=== PATIENT | male | born 1970 | race Two or more races ===

== ENCOUNTER 2021-11-22 17:11 | Inpatient (IN) | payer MEDICARE, OTHER ==
[~2021-11-22] VITALS: Ht 195.6 cm; Wt 170.1 kg
[2021-11-22] MEDS ORDERED: ONDANSETRON HCL/PF 4 MG/2 ML VIAL ONE (17:57)
[2021-11-22] MEDS ORDERED: MORPHINE SULFATE INJ 4 MG/ML DISP.SYRIN ONE (17:57)
[2021-11-22] MEDS ORDERED: MORPHINE SULFATE INJ 2 MG/ML DISP.SYRIN IV ONE (18:00)
[2021-11-22] MEDS ORDERED: ONDANSETRON HCL/PF 4 MG/2 ML VIAL IV ONE (18:00)
[2021-11-22] MEDS ORDERED: NITROGLYCERIN 0.4 MG/TAB BOTTLE SL ONE (18:00)
[2021-11-22 18:03] LABS: BASOPHILS # (AUTO) 0.1 K/uL (0.0-0.2); BASOPHILS % (AUTO) 0.8 % (0.0-2.0); EOSINOPHILS % (AUTO) 1.4 % (0.0-6.0); HEMATOCRIT 45 % (39-51); HEMOGLOBIN 15.1 g/dL (13.5-17.5); LYMPHOCYTES # (AUTO) 1.2 K/uL (0.8-4.8); LYMPHOCYTES % (AUTO) 12.2 % (20.0-44.0); MEAN CORPUSCULAR HGB CONC 34 g/dl (31.0-36.0); MEAN CORPUSCULAR VOLUME 93 fL (80-96); MONOCYTES # (AUTO) 0.6 K/uL (0.1-1.30); MONOCYTES % (AUTO) 6.4 % (2.0-12.0); NEUTROPHILS % (AUTO) 79.2 % (43.0-81.0); PLATELET COUNT (AUTO) 236 K/uL (150-450); RED BLOOD CELL COUNT(AUTO) 4.82 MIL/uL (4.5-6.0); WHITE BLOOD COUNT (AUTO) 10.1 K/uL (4.3-11.0)
[2021-11-22 18:30] LABS: POTASSIUM 3.9 mmol/L (3.5-5.1); SODIUM SERUM 136 mmol/L (136-145)
[2021-11-22 18:31] LABS: CALCIUM, SERUM 8.6 mg/dL (8.5-10.1); CARBON DIOXIDE 22 mmol/L (21-32); CHLORIDE 101 mmol/L (98-107); CREATININE 1.1 mg/dL (0.6-1.3); GLUCOSE 96 mg/dL (74-106); UREA NITROGEN, BLOOD 11 mg/dL (7-18)
[2021-11-22] MEDS ORDERED: IOHEXOL-350 100 ML VIAL IV ONE (18:58)
[2021-11-22] MEDS ORDERED: IV NS 0.9% 250 ML IV ONE (18:58)
[2021-11-22] MEDS ORDERED: CT SWABBABLE VALVE TRANS SET 1 EA INFUS.SET MC ONE (18:58)
[2021-11-22] MEDS ORDERED: LORAZEPAM 1 MG TABLET ONE (21:10)
[2021-11-22] MEDS ORDERED: LORAZEPAM 1 MG TABLET PO ONE (21:30)
[2021-11-22] MEDS ORDERED: NITROGLYCERIN 0.4 MG/TAB BOTTLE SL PRN (22:00)
[2021-11-22] MEDS ORDERED: ONDANSETRON HCL/PF 4 MG/2 ML VIAL IVP PRN (22:00)
[2021-11-22] MEDS ORDERED: MAGNESIUM HYDROXIDE 30 ML UDC PO PRN (22:00)
[2021-11-22] MEDS ORDERED: Z GUARD REMEDY 4 OZ OINT TP PRN (22:00)
[2021-11-22] MEDS ORDERED: MORPHINE SULFATE INJ 2 MG/ML DISP.SYRIN IV PRN (22:00)
[2021-11-22] MEDS ORDERED: MAG HYDROX/AL HYDROX/SIMETH 30 ML UDC PO PRN (22:00)
[2021-11-22] MEDS ORDERED: ACETAMINOPHEN 325 MG TABLET PO PRN (22:00)
[2021-11-22] MEDS ORDERED: OLANZAPINE 10 MG VIAL IM ONE (23:26)
[2021-11-22] MEDS ORDERED: OLANZAPINE 5 MG TABLET PO ONE (23:30)
[2021-11-22] MEDS ORDERED: METOPROLOL TARTRATE 25 MG TABLET PO SCH (23:46)
[2021-11-23] MEDS ORDERED: OLANZAPINE 10 MG VIAL IM ONE
[2021-11-23] MEDS ORDERED: TEMA15CA PO (08:14)
[2021-11-23] MEDS ORDERED: METO25TA20 PO (08:14)
[2021-11-23] MEDS ORDERED: HYDR-3980 PO (08:14)
[2021-11-23 09:14] LABS: BASOPHILS # (AUTO) 0.1 K/uL (0.0-0.2); BASOPHILS % (AUTO) 0.8 % (0.0-2.0); HEMATOCRIT 43 % (39-51); HEMOGLOBIN 14.5 g/dL (13.5-17.5); LYMPHOCYTES # (AUTO) 1.1 K/uL (0.8-4.8); LYMPHOCYTES % (AUTO) 12.8 % (20.0-44.0); MEAN CORPUSCULAR HGB CONC 34 g/dl (31.0-36.0); MEAN CORPUSCULAR VOLUME 93 fL (80-96); MONOCYTES # (AUTO) 0.6 K/uL (0.1-1.30); MONOCYTES % (AUTO) 6.8 % (2.0-12.0); NEUTROPHILS # (AUTO) 6.4 K/uL (1.8-8.9); NEUTROPHILS % (AUTO) 77.6 % (43.0-81.0); PLATELET COUNT (AUTO) 219 K/uL (150-450); WHITE BLOOD COUNT (AUTO) 8.3 K/uL (4.3-11.0)
[2021-11-23 09:54] LABS: CREATININE 0.9 mg/dL (0.6-1.3); MAGNESIUM 2.3 mg/dL (1.8-2.4); PHOSPHORUS 4.4 mg/dL (2.5-4.9); POTASSIUM 3.6 mmol/L (3.5-5.1)
[2021-11-23] MEDS ORDERED: TEMAZEPAM 15 MG CAPSULE PO PRN (13:00)
[2021-11-23] MEDS ORDERED: METOPROLOL TARTRATE 25 MG TABLET PO SCH (17:00)
[2021-11-23] MEDS: LOSARTAN POTASSIUM 25 MG TABLET PO SCH (17:01)
[2021-11-23 20:00] VITALS: BP 121/66
[2021-11-23] MEDS: METOPROLOL TARTRATE 25 MG TABLET PO SCH (21:14)
[2021-11-24] VITALS: BP 129/70
[2021-11-24 04:00] VITALS: BP 94/57
[2021-11-24 08:00] VITALS: BP 126/64
[2021-11-24] MEDS: LOSARTAN POTASSIUM 25 MG TABLET PO SCH (08:33)
[2021-11-24] MEDS: METOPROLOL TARTRATE 25 MG TABLET PO SCH ×2 (08:33→21:00)
[2021-11-24] MEDS ORDERED: NITROGLYCERIN 0.4 MG/TAB BOTTLE ONE (09:02)
[2021-11-24] MEDS ORDERED: METOPROLOL TARTRATE INJ 5 MG/5 ML AMPUL ONE (09:02)
[2021-11-24] MEDS ORDERED: IOHEXOL-350 100 ML VIAL IV ONE ×2 (09:02→09:54)
[2021-11-24] MEDS ORDERED: CT SWABBABLE VALVE TRANS SET 1 EA INFUS.SET MC ONE (09:03)
[2021-11-24] MEDS ORDERED: IV NS 0.9% 250 ML IV ONE (09:03)
[2021-11-24] MEDS ORDERED: NITROGLYCERIN 0.4 MG/TAB BOTTLE SL ONE (09:30)
[2021-11-24] MEDS ORDERED: METOPROLOL TARTRATE INJ 5 MG/5 ML AMPUL IVP PRN (09:30)
[2021-11-24 12:00] VITALS: BP 126/64
[2021-11-24 16:00] VITALS: BP 120/70
[2021-11-24 20:00] VITALS: BP 116/62
[2021-11-24] MEDS: HYDROCODONE/APAP 10/325MG TABLET PO PRN (21:38)
[2021-11-24] MEDS: ZOLPIDEM TARTRATE 5 MG TABLET PO PRN (23:55)
[2021-11-25] VITALS: BP 113/55
[2021-11-25 04:00] VITALS: BP 93/57
[2021-11-25 08:00] VITALS: BP 112/69
[2021-11-25] MEDS: LOSARTAN POTASSIUM 25 MG TABLET PO SCH (09:22)
[2021-11-25] MEDS: METOPROLOL TARTRATE 25 MG TABLET PO SCH (09:22)
[2021-11-25 12:00] VITALS: BP 118/73
[2021-11-25] MEDS: ZOLPIDEM TARTRATE 5 MG TABLET PO PRN (13:19)
[2021-11-25] MEDS: HYDROCODONE/APAP 10/325MG TABLET PO PRN (13:19)
== END 2021-11-25 15:36 | DRG 206 ==
LOC: ER 17:17 → TELE1 23:35 → MEDSG1 11-25 08:46
PROVIDERS: ADMIT Internal Medicine; ATTEND Internal Medicine
DX: M94.0 Chondrocostal junction syndrome [Tietze] (principal); I10 Essential (primary) hypertension; F41.9 Anxiety disorder, unspecified; G89.29 Other chronic pain; Z20.822 Contact with and (suspected) exposure to COVID-19; Z98.890 Other specified postprocedural states; G31.84 Mild cognitive impairment of uncertain or unknown etiology
CPT/HCPCS: 36415; 71045-TC; 75574; 80048-TC; 83735-TC; 84100-TC; 84484-TC; 85025-TC; 85378-TC; 87081-TC; 93307-TC; C9803; G0378; J2270; J2405; J3490; J7050; Q9967; U0003

== ENCOUNTER 2021-12-13 18:00 | Inpatient (IN) | payer MEDICARE, OTHER ==
[~2021-12-13] VITALS: Ht 198.1 cm; Wt 181.4 kg
[~2021-12-13 18:00] MED LIST: HYDR-3980 PO; METO25TA20 PO; TEMA15CA PO
--- NOTE | 2021-12-13 18:15 | NUR ---
To ER bed 9, BIBA RA60 "[place] SOB today have Back and chest pain". Patient has history of multiple neck surgery from a fall, most recent one was last year, takes routine pain medicine consist of morphine and norco, connected to monitor
[2021-12-13] MEDS ORDERED: MORPHINE SULFATE INJ 4 MG/ML DISP.SYRIN ONE (18:46)
[2021-12-13] MEDS ORDERED: ONDANSETRON HCL/PF 4 MG/2 ML VIAL ONE (18:46)
[2021-12-13 18:58] LABS: CALCIUM, SERUM 8.5 mg/dL (8.5-10.1); CREATININE 1.1 mg/dL (0.6-1.3); POTASSIUM 3.6 mmol/L (3.5-5.1)
[2021-12-13] MEDS ORDERED: ONDANSETRON HCL/PF 4 MG/2 ML VIAL IVP ONE (19:00)
[2021-12-13] MEDS ORDERED: MORPHINE SULFATE INJ 2 MG/ML DISP.SYRIN IV ONE (19:00)
--- NOTE | 2021-12-13 19:40 | NUR ---
PT RECIEVED IN BED RESTING. ALERT, AWAKE AND ORIENTED. NOT IN DISTRESS.
[2021-12-13 19:57] LABS: BASOPHILS # (AUTO) 0.1 K/uL (0.0-0.2); BASOPHILS % (AUTO) 1.1 % (0.0-2.0); EOSINOPHILS % (AUTO) 0.8 % (0.0-6.0); HEMATOCRIT 43 % (39-51); HEMOGLOBIN 14.5 g/dL (13.5-17.5); LYMPHOCYTES # (AUTO) 1.5 K/uL (0.8-4.8); LYMPHOCYTES % (AUTO) 13.6 % (20.0-44.0); MEAN CORPUSCULAR HGB CONC 34 g/dl (31.0-36.0); MEAN CORPUSCULAR VOLUME 93 fL (80-96); MONOCYTES # (AUTO) 0.8 K/uL (0.1-1.30); MONOCYTES % (AUTO) 7.1 % (2.0-12.0); NEUTROPHILS # (AUTO) 8.3 K/uL (1.8-8.9); NEUTROPHILS % (AUTO) 77.4 % (43.0-81.0); PLATELET COUNT (AUTO) 218 K/uL (150-450); RED BLOOD CELL COUNT(AUTO) 4.61 MIL/uL (4.5-6.0); WHITE BLOOD COUNT (AUTO) 10.7 K/uL (4.3-11.0)
--- NOTE | 2021-12-13 21:40 | NUR ---
PHLEB INFORMED ME THAT THE PATIENT HAVE A BLOOD DRAW FOR TROPONIN. PT REFUSED AND TOLD PHLEB THAT SHE CAN GET THE BLOOD FROM HIS WRIST. PT WAS NOTED WITH A CUT ON HIS RIGHT WRIST ABOUT 4CM WITH MODERATED BLEEDING. WOUND CARE PROVIDED. PROVIDER WAS NOTIFIED. PT'S BELINGINGS WAS SERCHED AND FOUND A KNIFE. PER PT, HE DOES NOT WANT TO LIVE ANY MORE.
[2021-12-13] MEDS ORDERED: LIDOCAINE 1%-EPI 1:100,000 20 ML VIAL ONE (21:51)
--- NOTE | 2021-12-13 22:10 | NUR ---
PROVIDER AT BEDSIDE FOR SUTURING OF WOUND
--- NOTE | 2021-12-13 22:10 | NUR ---
PROVIDER TALKING TO DR. RAZO OVER THE PHONE.
[2021-12-13] MEDS ORDERED: HYDROCODONE/APAP 5/325MG TABLET PO PRN (23:00)
[2021-12-13] MEDS ORDERED: IV NS 0.9% 1,000 ML IV PRN (23:00)
[2021-12-13] MEDS ORDERED: ONDANSETRON HCL/PF 4 MG/2 ML VIAL IVP PRN (23:00)
[2021-12-13] MEDS ORDERED: MAG HYDROX/AL HYDROX/SIMETH 30 ML UDC PO PRN (23:00)
[2021-12-13] MEDS ORDERED: ZOLPIDEM TARTRATE 5 MG TABLET PO PRN (23:00)
[2021-12-13] MEDS ORDERED: ACETAMINOPHEN 325 MG TABLET PO PRN (23:00)
[2021-12-13] MEDS ORDERED: MAGNESIUM HYDROXIDE 30 ML UDC PO PRN (23:00)
[2021-12-13] MEDS ORDERED: Z GUARD REMEDY 4 OZ OINT TP PRN (23:00)
[2021-12-14] MEDS ORDERED: LORAZEPAM 1 MG TABLET ONE (00:57)
[2021-12-14] MEDS ORDERED: LORAZEPAM INJ 2 MG/ML VIAL ONE (01:00)
--- NOTE | 2021-12-14 01:05 | NUR ---
dr. marjorie miner was at the bedside talking to pt. verbal order received to given ativan 2mg iv x 1 now and ativan 1mg iv qh4 prn. noted and carried out
[2021-12-14] MEDS ORDERED: *INSULIN REGULAR(HUMULIN R)HUM 100 UNIT/ML VIAL SQ PRN (01:30)
[2021-12-14] MEDS ORDERED: DEXTROSE 50%-WATER 50 ML DISP.SYRIN IV PRN (01:30)
[2021-12-14] MEDS ORDERED: LORAZEPAM INJ 2 MG/ML VIAL IV ONE (01:30)
[2021-12-14] MEDS ORDERED: LORAZEPAM INJ 2 MG/ML VIAL IV PRN (01:30)
[2021-12-14] MEDS ORDERED: INSULIN REGULAR, HUMAN 100 UNIT/ML 3 ML VIAL SQ PRN (01:30)
[2021-12-14] MEDS ORDERED: TEMAZEPAM 15 MG CAPSULE PO PRN (02:30)
[2021-12-14] MEDS ORDERED: HYDROCODONE/APAP 10/325MG TABLET PO PRN (02:30)
--- NOTE | 2021-12-14 03:40 | NUR ---
PT IN BED SLEEPING. NO DISTRESS NOTED. SITTER IS AT BEDSIDE.
[2021-12-14 04:21] LABS: BASOPHILS % (AUTO) 0.2 % (0.0-2.0); EOSINOPHILS % (AUTO) 2.3 % (0.0-6.0); HEMATOCRIT 41 % (39-51); HEMOGLOBIN 14.1 g/dL (13.5-17.5); LYMPHOCYTES # (AUTO) 1.4 K/uL (0.8-4.8); LYMPHOCYTES % (AUTO) 17.5 % (20.0-44.0); MEAN CORPUSCULAR HGB CONC 34 g/dl (31.0-36.0); MEAN CORPUSCULAR VOLUME 92 fL (80-96); MONOCYTES # (AUTO) 0.7 K/uL (0.1-1.30); MONOCYTES % (AUTO) 9.2 % (2.0-12.0); NEUTROPHILS # (AUTO) 5.7 K/uL (1.8-8.9); NEUTROPHILS % (AUTO) 70.8 % (43.0-81.0); PLATELET COUNT (AUTO) 204 K/uL (150-450); RED BLOOD CELL COUNT(AUTO) 4.45 MIL/uL (4.5-6.0); WHITE BLOOD COUNT (AUTO) 8.1 K/uL (4.3-11.0)
[2021-12-14 04:37] LABS: CREATININE 0.8 mg/dL (0.6-1.3); MAGNESIUM 2.1 mg/dL (1.8-2.4); PHOSPHORUS 3.2 mg/dL (2.5-4.9); POTASSIUM 3.6 mmol/L (3.5-5.1)
[2021-12-14 04:46] LABS: THYROID STIMULATING HORMONE 0.9 uIU/mL (0.358-3.74)
--- NOTE | 2021-12-14 06:00 | NUR ---
PT IN BED SLEEPING, BREATHING EVEN AN DUNLABORED. NO DISTRESS NOTED. 1:1 SITTER AT BEDSIDE
[2021-12-14] MEDS ORDERED: PANTOPRAZOLE 40 MG TABLET.DR PO SCH (07:30)
--- NOTE | 2021-12-14 07:36 | NUR ---
PT ENDORSED TO MIGUE NATHAN FOR SELENE
--- NOTE | 2021-12-14 07:41 | NUR ---
PT ENDORSED TO SYLVESTER RN WELL
[2021-12-14] MEDS: BLOOD SUGAR DIAGNOSTIC 1 EACH STRIP VI SCH ×2 (07:56→12:18)
[2021-12-14] MEDS ORDERED: PANTOPRAZOLE 40 MG TABLET.DR PO ONE (08:00)
--- NOTE | 2021-12-14 08:22 | NUR ---
CALLED ART FOR EVAL.
[2021-12-14] MEDS ORDERED: ASPIRIN EC 81 MG TABLET.DR PO SCH (09:00)
[2021-12-14] MEDS ORDERED: METOPROLOL TARTRATE 25 MG TABLET PO SCH (09:00)
[2021-12-14] MEDS ORDERED: ENOXAPARIN SODIUM 40 MG/0.4 ML DISP.SYRIN SQ SCH (09:00)
[2021-12-14] MEDS ORDERED: ENOXAPARIN SODIUM 40 MG/0.4 ML DISP.SYRIN SQ ONE (09:35)
[2021-12-14] MEDS ORDERED: HYDROCODONE/APAP 5/325MG TABLET ONE (09:35)
[2021-12-14] MEDS ORDERED: ASPIRIN EC 81 MG TABLET.DR PO ONE (09:36)
--- NOTE | 2021-12-14 10:12 | NUR ---
MEDICALLY CLEARED PER DR DOUGLASS,NEEDS PSYCH EVAL
--- NOTE | 2021-12-14 10:52 | NUR ---
BED GIVEN 214 A
[2021-12-14 11:21] VITALS: BP 116/64
--- NOTE | 2021-12-14 11:23 | NUR ---
IV removed. Catheter intact and site benign. Pressure and 4x4 applied to site. No bleeding noted.
--- NOTE | 2021-12-14 12:01 | NUR ---
PT SITTING IN BED EATING
--- NOTE | 2021-12-14 13:20 | NUR ---
report given to rn
--- NOTE | 2021-12-14 13:22 | NUR ---
PT TRANSFERRED TO UNIT FOLLOWING ACLS PROTOCOL
== END 2021-12-14 14:20 | DRG 74 ==
LOC: ER 18:07 → TRANSITION 23:04
PROVIDERS: ADMIT Student in an Organized Health Care Education/Training Program; ATTEND Internal Medicine
DX: G90.8 Other disorders of autonomic nervous system (principal); E87.1 Hypo-osmolality and hyponatremia; M94.0 Chondrocostal junction syndrome [Tietze]; E11.9 Type 2 diabetes mellitus without complications; G89.29 Other chronic pain; S61.511A Laceration without foreign body of right wrist, initial encounter; X78.1XXA Intentional self-harm by knife, initial encounter; Y92.89 Other specified places as the place of occurrence of the external cause; I50.9 Heart failure, unspecified; I11.0 Hypertensive heart disease with heart failure; Z79.899 Other long term (current) drug therapy; G31.84 Mild cognitive impairment of uncertain or unknown etiology; Z98.890 Other specified postprocedural states; F41.9 Anxiety disorder, unspecified
CPT/HCPCS: 36415; 70450-TC; 71045-TC; 73564-TC; 80048-TC; 82962-TC; 83735-TC; 84100-TC; 84443-TC; 84484-TC; 85025-TC; 87081-TC; C9803; G0378; J1650; J1815; J2060; J2270; J2405; J3490; J7030

== ENCOUNTER 2021-12-14 14:20 | Inpatient (IN) | payer MEDICARE, OTHER ==
[~2021-12-14] VITALS: Ht 198.1 cm; Wt 174.2 kg
--- NOTE | 2021-12-14 10:39 | NUR ---
RANDELL Note: SW asked pt how he got the knife, he stated that he [place] it from the [place] and came to the ER due to being depressed over losing his job and gf.
--- NOTE | 2021-12-14 13:55 | NUR ---
Admitting Source: Pt. currently resides at [address] [address]. Pt. stated he wants to be placed at a different assisted living facility. SW will find different placement for pt.
--- NOTE | 2021-12-14 14:38 | NUR ---
ADMISSION NOTES: ADMITTED THIS 51Y/O MALE PATIENT ADMIT FROM [facility] ER/ HOME, ADMITTED TO GPS ON 5150 HOLD, PER HOLD DANGER TO SELF, WHILE IN THE ED THE PT. CUT HIS WRIST WITH A KNIFE A SUICIDE ATTEMPT AND REMAINS SUICIDAL, PT. DESPONDENT OVER LOSING HIS JOB AND GIRLFRIEND. HEARING VOICES TELLING HIM THEY ARE KILLING HIM , UPON FACE TO FACE ASSESSMENT PATIENT IS A&O X 4 , DEPRESSED,SAD ,BLUNTED ,WITH FLAT AFFECT, CALM COOPERTIVE AT THIS TIME, PT. IS POOR HISTORIAN, POOR INSIGHT ,POOR JUDGEMENT , BOTH MD AWARE AND NOTIFIED OF THE ADMISSION, BELONGINGS CONTRABAND WERE DONE ,PT. RIGHTS DISCUSS BY WATCH COMMANDER , PROVIDE THE PT. WITH HANDBOOK, AND MEDICATIONS GUIDE, ENVIRONMENTAL SAFETY CHECK DONE, ENCOURAGED PT. VERBALIZED ANY FEELING CONCERN TO STAFF, ORIENT TO UNIT POLICY, NO ACUTE DISTRESS NOTED,VITAL SIGNS WNL ,DENIES ANY PAIN AT THIS TIME,WILL CONTINUE TO MONITOR FOR Q15 SAFETY AND BEHAVIOR.
[2021-12-14] MEDS ORDERED: HYDROCODONE/APAP 10/325MG TABLET PO PRN (15:00)
[2021-12-14] MEDS ORDERED: BLOOD SUGAR DIAGNOSTIC 1 EACH STRIP IN ONE (15:30)
[2021-12-14] MEDS ORDERED: ACETAMINOPHEN 325 MG TABLET PO PRN (15:30)
[2021-12-14] MEDS ORDERED: LORAZEPAM 0.5 MG TABLET PO PRN (15:30)
[2021-12-14] MEDS ORDERED: TEMAZEPAM 7.5 MG CAPSULE PO PRN (15:30)
[2021-12-14] MEDS ORDERED: MAGNESIUM HYDROXIDE 30 ML UDC PO PRN (15:30)
[2021-12-14] MEDS ORDERED: MAG HYDROX/AL HYDROX/SIMETH 30 ML UDC PO PRN (15:30)
--- NOTE | 2021-12-14 15:35 | NUR ---
Social Work Note/Substance Abuse Intervention: Patient was provided with a brief substance abuse intervention and referred to [facility] ([phone]), [facility] ([phone]), and [facility] ([phone]) for alcohol abuse.
--- NOTE | 2021-12-14 15:35 | NUR ---
SW Note: Pt does not have any supportive contact at this time.
[2021-12-14 15:43] VITALS: BP 132/76
--- NOTE | 2021-12-14 15:46 | NUR ---
RANDELL Initial Discharge Plan: Pt. currently resides at [address] [facility] [address] [facility] [address] [address]. Pt. stated he wants to be placed at a different assisted living facility. RANDELL will work with the pt. and MD to coordinate appropriate discharge.
[2021-12-14 16:00] VITALS: BP 116/69
[2021-12-14 16:01] VITALS: BP 116/69
--- NOTE | 2021-12-14 16:17 | NUR ---
RANDELL Note: RANDELL received a call from Petrona ([phone]) from [facility] and she stated that they cannot accept pt back because pt has been threatening the residence.
--- NOTE | 2021-12-14 16:26 | NUR ---
RN NOTES: PT. REFUSED TO SIGNS ADMISSION CONSENT PAPERS DUE TO MENTAL CONDITION /ANXIETY , PT. REFUSED FULL BODY SKIN ASSESSMENT AND ALLOWED ONLY UPPER LOWER EXTREMITIES SKIN ASSESSMENT, PT. REFUSED INTIALLY BLOOD SUGAR CHECK ,ENCOURAGED X 3 , RISKS AND BENFITS EXPLINED, PT. STRONGLY REFUSED ,WILL CONTINUE TO MONITOR FOR Q15 SAFETY AND BEHAVIOR.
[2021-12-14] MEDS: METOPROLOL TARTRATE 25 MG TABLET PO SCH (17:45)
[2021-12-14 20:00] VITALS: BP 123/75
--- NOTE | 2021-12-15 07:01 | NUR ---
RN GPS NOTE: DR. ISAACS STATED HE WILL SEE THE PATIENT LATER TONIGHT. PATIENT ALSO REFUSED BLOOD DRAW THIS MORNING, BUT SAID HE "WILL DO IT LATER". WILL CONTINUE TO MONITOR Q15 MINUTES FOR SAFETY.
[2021-12-15 08:00] VITALS: BP 117/76
--- NOTE | 2021-12-15 08:17 | NUR ---
PER LABORATORY STAFF MYLES Caballero PATIENT REFUSED BLOOD DRAW.
[2021-12-15] MEDS: METOPROLOL TARTRATE 25 MG TABLET PO SCH (08:43)
--- NOTE | 2021-12-15 08:55 | NUR ---
WOUND CARE CONSULT: PT REFUSED FULL SKIN ASSESSMENT. RT WRIST SUTURES NOTED, PRESENT ON ADMISSION. RECOMMENDATIONS MADE FOR SKIN PROTECTION AND WOUND CARE. DISCUSSED WITH NURSING STAFF. MD IN AGREEMENT WITH PLAN OF CARE. PT IS INDEPENDENT WITH BED MOBILITY.
--- NOTE | 2021-12-15 10:27 | NUR ---
ATIVAN 1MG GIVEN FOR ANXIETY. WILL CONTINUE TO MONITOR.
--- NOTE | 2021-12-15 11:45 | NUR ---
NORCO 10-325 GIVEN FOR PAIN OF 7. WILL CONTINUE TO MONITOR.
--- NOTE | 2021-12-15 11:56 | NUR ---
SW Note: Pt expressed to this contract technical writer that he does not want anyone to contact him. He stated he does not want this contract technical writer to share any information to the Independent Living he was at. Pt wants another placement.
[2021-12-15 16:00] VITALS: BP 134/79
[2021-12-15 16:14] LABS: ALBUMIN 3.3 g/dL (3.4-5.0); BILIRUBIN,TOTAL 0.4 mg/dL (0.2-1.0); CALCIUM, SERUM 8.6 mg/dL (8.5-10.1); CREATININE 0.9 mg/dL (0.6-1.3); POTASSIUM 3.8 mmol/L (3.5-5.1); TOTAL PROTEIN, SERUM 7.1 g/dL (6.4-8.2)
[2021-12-15 16:41] LABS: CHOLESTEROL 162 mg/dL (<200); HDL CHOLESTEROL 53 mg/dL (40-60); LDL 93 mg/dL (0-99); TRIGLYCERIDES 122 mg/dL (30-150)
--- NOTE | 2021-12-15 17:39 | NUR ---
PT ACCIDENTALLY DISCHARGED BY OTHER THAN [facility] GPS PERSONNEL. NURSING ELECTRICIAN DECK INFORMED THAT PT'S MEDS ARE NO LONGER AVAILABLE IN [facility]. NURSING ELECTRICIAN DECK STATED THAT PHARMACY WILL INPUT MEDS.
[2021-12-15] MEDS ORDERED: MAGNESIUM HYDROXIDE 30 ML UDC PO PRN (18:00)
[2021-12-15] MEDS ORDERED: BLOOD SUGAR DIAGNOSTIC 1 EACH STRIP IN ONE (18:00)
[2021-12-15] MEDS ORDERED: HYDROCODONE/APAP 10/325MG TABLET PO PRN (18:00)
[2021-12-15] MEDS ORDERED: MAG HYDROX/AL HYDROX/SIMETH 30 ML UDC PO PRN (18:00)
[2021-12-15] MEDS ORDERED: ACETAMINOPHEN 325 MG TABLET PO PRN (18:00)
[2021-12-15] MEDS ORDERED: TEMAZEPAM 7.5 MG CAPSULE PO PRN (18:00)
[2021-12-15] MEDS: LORAZEPAM 0.5 MG TABLET PO PRN (19:34)
--- NOTE | 2021-12-15 19:36 | NUR ---
RN NOTES: ANXIETY PT. C/O ANXIOUS , PARANOID ,PRN ATIVAN 1 MG PO GIVEN PER PT. REQUEST, WILL CONTINUE TO MONITOR.
[2021-12-15 20:00] VITALS: BP 121/74
[2021-12-15] MEDS ORDERED: TRAZODONE 50 MG TABLET PO PRN (22:30)
[2021-12-15] MEDS: BENZTROPINE MESYLATE (1 MG) 1 MG TABLET PO SCH (22:50)
[2021-12-15] MEDS: LITHIUM CARBONATE (300 MG CAP) 300 MG CAPSULE PO SCH (22:50)
[2021-12-15] MEDS: HALOPERIDOL 5 MG TABLET PO SCH (22:50)
[2021-12-16] MEDS: HALOPERIDOL 5 MG TABLET PO SCH ×3 (08:33→17:10)
[2021-12-16] MEDS: METOPROLOL TARTRATE 25 MG TABLET PO SCH ×2 (08:33→17:00)
[2021-12-16] MEDS: BENZTROPINE MESYLATE (1 MG) 1 MG TABLET PO SCH ×3 (08:34→17:10)
[2021-12-16] MEDS: LITHIUM CARBONATE (300 MG CAP) 300 MG CAPSULE PO SCH ×3 (08:34→17:10)
[2021-12-16 08:46] VITALS: BP 123/79
--- NOTE | 2021-12-16 13:36 | NUR ---
Skin Grader: RANDELL received a call from Marcella ([phone]) who helps pt and in a AL Program. RANDELL notified that Marcella medical case worker contacted, he stated not to share any information nor wants to talk to her. RANDELL informed this to Marcella.
[2021-12-16] MEDS: LORAZEPAM 0.5 MG TABLET PO PRN ×2 (15:24→19:43)
--- NOTE | 2021-12-16 15:30 | NUR ---
ATIVAN 1MG GIVEN FOR ANXIETY. WILL CONTINUE TO MONITOR.
[2021-12-16 16:14] VITALS: BP 104/68
[2021-12-16 19:46] VITALS: BP 135/72
[2021-12-16] MEDS: ZOLPIDEM TARTRATE 10 MG TABLET PO PRN (23:02)
[2021-12-17] MEDS: LORAZEPAM 0.5 MG TABLET PO PRN (06:47)
[2021-12-17] MEDS: BENZTROPINE MESYLATE (1 MG) 1 MG TABLET PO SCH ×3 (08:53→17:17)
[2021-12-17] MEDS: LITHIUM CARBONATE (300 MG CAP) 300 MG CAPSULE PO SCH ×3 (08:53→17:17)
[2021-12-17] MEDS: HALOPERIDOL 5 MG TABLET PO SCH ×3 (08:53→17:17)
[2021-12-17] MEDS: METOPROLOL TARTRATE 25 MG TABLET PO SCH ×2 (08:54→17:17)
--- NOTE | 2021-12-17 10:02 | NUR ---
SW Coordination of Care: SW reached out to Alea martínez ([phone]) to help with placement (Assisted Living or Independent Living). Alea stated she will find placement for pt upon dc.
--- NOTE | 2021-12-17 10:21 | NUR ---
RN-NOTES PATIENT C/O COUGH, CHAYA MADE AWARE WITH NO. NOTED AND CARRIED OUT.
[2021-12-17 12:13] LABS: BASOPHILS # (AUTO) 0.1 K/uL (0.0-0.2); BASOPHILS % (AUTO) 0.9 % (0.0-2.0); EOSINOPHILS % (AUTO) 3.8 % (0.0-6.0); HEMATOCRIT 44 % (39-51); HEMOGLOBIN 14.9 g/dL (13.5-17.5); LYMPHOCYTES # (AUTO) 0.3 K/uL (0.8-4.8); LYMPHOCYTES % (AUTO) 3.6 % (20.0-44.0); MEAN CORPUSCULAR HGB CONC 34 g/dl (31.0-36.0); MEAN CORPUSCULAR VOLUME 94 fL (80-96); MONOCYTES # (AUTO) 0.5 K/uL (0.1-1.30); MONOCYTES % (AUTO) 6.9 % (2.0-12.0); NEUTROPHILS # (AUTO) 6.7 K/uL (1.8-8.9); NEUTROPHILS % (AUTO) 84.8 % (43.0-81.0); PLATELET COUNT (AUTO) 213 K/uL (150-450); RED BLOOD CELL COUNT(AUTO) 4.74 MIL/uL (4.5-6.0); WHITE BLOOD COUNT (AUTO) 7.9 K/uL (4.3-11.0)
[2021-12-17] MEDS: GUAIFENESIN/D-METHORPHAN HB 5 ML UDC PO PRN (12:13)
--- NOTE | 2021-12-17 12:13 | NUR ---
RN-NOTES ROBITUSSIN SYRUP 5ML GIVEN PRN ORDER.
[2021-12-17 12:24] LABS: CALCIUM, SERUM 9.5 mg/dL (8.5-10.1); POTASSIUM 3.6 mmol/L (3.5-5.1)
[2021-12-17 12:31] LABS: ALBUMIN 3.4 g/dL (3.4-5.0); BILIRUBIN,TOTAL 0.3 mg/dL (0.2-1.0); TOTAL PROTEIN, SERUM 7.2 g/dL (6.4-8.2)
--- NOTE | 2021-12-17 13:47 | NUR ---
RN-NOTES DR. CASTELLANOS MADE DUBOSE OF PATIENT'S COVID RESULTS WITH NNO. WILL CONTINUE MONITORING. Addendum: 12/17/21 at 1907 by LA DONNELLY RN PATIENT PUT ON AIRBORNE ISOLATION
[2021-12-17 15:47] VITALS: BP 114/76
[2021-12-17 20:00] VITALS: BP 153/93
--- NOTE | 2021-12-17 20:05 | NUR ---
GPS RN OPENING NOTES: RECEIVED PATIENT IN ISOLATION ROOM FOR COVID. AWAKE, A/O X3, APPEARS DEPRESSED, FLAT AFFECT, GUARDED, WITHDRAWN, PASSIVE. DENIES PAIN AT THIS TIME. ABLE TO MAKE NEEDS KNOWN. NO S/S OF DISTRESS NOTED. RESPIRATION EVEN AND UNLABORED WITH EQUAL RISE AND FALL OF THE CHEST, ON ROOM AIR. OFFERED FLUID AND SNACKS TOLERATED. BED IN LOW LOCKED POSITION, SIDE RAILS UP X2 FOR SAFETY. CALL WHITE WITHIN REACH. WILL CONTINUE TO MONITOR.
[2021-12-17] MEDS: ZOLPIDEM TARTRATE 10 MG TABLET PO PRN (20:26)
--- NOTE | 2021-12-17 20:36 | NUR ---
GPS RN NOTES: PATIENT REQUESTED FOR SLEEP MEDICATION. AMBIEN 10MG GIVEN PO PRN AT 2025. WILL CONTINUE TO MONITOR.
--- NOTE | 2021-12-18 07:03 | NUR ---
GPS RN CLOSING NOTES: PATIENT SLEEPING COMFORTABLY IN BED. PATIENT SLEPT 8HR THIS SHIFT. NO COMPLAINS OF S/S OF COVID. NO S/S OF DISTRESS. RESPIRATION EVEN AND UNLABORED WITH EQUAL RISE AND FALL OF THE CHEST, ON ROOM AIR. BED IN LOWEST POSITION AND LOCKED, CALL WHITE WITHIN REACH. ALL PATIENT CARE NEEDS HAVE BEEN MET ANTICIPATED. WILL CONTINUE TO MONITOR AND ENDORSE TO AM SHIFT
[2021-12-18 08:00] VITALS: BP 132/81
[2021-12-18] MEDS: BENZTROPINE MESYLATE (1 MG) 1 MG TABLET PO SCH ×3 (08:46→16:57)
[2021-12-18] MEDS: LITHIUM CARBONATE (300 MG CAP) 300 MG CAPSULE PO SCH ×3 (08:46→16:57)
[2021-12-18] MEDS: HALOPERIDOL 5 MG TABLET PO SCH ×3 (08:46→16:57)
[2021-12-18] MEDS: GUAIFENESIN/D-METHORPHAN HB 5 ML UDC PO PRN (08:47)
[2021-12-18] MEDS: METOPROLOL TARTRATE 25 MG TABLET PO SCH ×2 (08:47→16:58)
[2021-12-18 16:00] VITALS: BP 105/69
[2021-12-18] MEDS: LORAZEPAM 0.5 MG TABLET PO PRN (17:02)
--- NOTE | 2021-12-18 17:02 | NUR ---
RN-NOTES PATIENT REQUESTING ATIVAN. STATED" CAN I HAVE MY ATIVAN FOR MY ANXIETY". ATIVAN 1MG P.O GIVEN PRN ORDER. WILL CONT. MONITORING FOR SAFETY AND BEHAVIOR.
--- NOTE | 2021-12-18 18:05 | NUR ---
RN-NOTES PATIENT LYING IN BED AWAKE,ALERT ,CALM NO ACUTE DISTRESS NOTED.
[2021-12-18 20:00] VITALS: BP 116/74
[2021-12-18] MEDS: ZOLPIDEM TARTRATE 10 MG TABLET PO PRN (21:47)
[2021-12-19 08:00] VITALS: BP 112/72
[2021-12-19] MEDS: HALOPERIDOL 5 MG TABLET PO SCH ×3 (09:23→16:33)
[2021-12-19] MEDS: BENZTROPINE MESYLATE (1 MG) 1 MG TABLET PO SCH ×3 (09:23→16:33)
[2021-12-19] MEDS: LITHIUM CARBONATE (300 MG CAP) 300 MG CAPSULE PO SCH ×3 (09:23→16:33)
[2021-12-19] MEDS: METOPROLOL TARTRATE 25 MG TABLET PO SCH ×2 (09:23→17:25)
[2021-12-19] MEDS: LORAZEPAM 0.5 MG TABLET PO PRN (12:47)
--- NOTE | 2021-12-19 12:47 | NUR ---
RN-NOTES PATIENT STATED"I NEED MY ATIVAN FOR MY ANXIETY". ATIVAN 1MG P.O GIVEN PRN ORDER. WILL CONT. MONITORING FOR SAFETY AND BEHAVIOR.
--- NOTE | 2021-12-19 13:45 | NUR ---
RN-NOTES PATIENT LYING IN BED AWAKE,ALERT ,CALM NO ACUTE DISTRESS NOTED.
[2021-12-19 15:39] LABS: ALBUMIN 3.3 g/dL (3.4-5.0); BILIRUBIN,TOTAL 0.3 mg/dL (0.2-1.0); CALCIUM, SERUM 8.6 mg/dL (8.5-10.1); CREATININE 0.9 mg/dL (0.6-1.3); TOTAL PROTEIN, SERUM 7.3 g/dL (6.4-8.2)
[2021-12-19 16:00] VITALS: BP 119/76
[2021-12-19] MEDS: ZOLPIDEM TARTRATE 10 MG TABLET PO PRN (20:45)
--- NOTE | 2021-12-19 20:50 | NUR ---
[facility]PS NURSING NOTE: PT C/O INSOMNIA AND REQUESTING FOR SLEEPING PILL, DECREASED EXTERNAL STIMULI, PT ENCOURAGED DEEP BREATHING FOR RELAXATION AND GIVEN 10MG OF AMBIEN FOR SLEEP @ 2044. WILL REASSESS THE EFFECTIVENESS OF MEDICATION GIVEN.
[2021-12-19 21:51] VITALS: BP 106/67
[2021-12-20] MEDS: HALOPERIDOL 5 MG TABLET PO SCH ×3 (09:26→17:17)
[2021-12-20] MEDS: METOPROLOL TARTRATE 25 MG TABLET PO SCH ×2 (09:27→17:17)
[2021-12-20] MEDS: BENZTROPINE MESYLATE (1 MG) 1 MG TABLET PO SCH ×3 (09:32→17:17)
[2021-12-20] MEDS: LITHIUM CARBONATE (300 MG CAP) 300 MG CAPSULE PO SCH ×3 (09:32→17:17)
[2021-12-20] MEDS: LORAZEPAM 0.5 MG TABLET PO PRN (11:02)
[2021-12-20] MEDS: TRAZODONE 50 MG TABLET PO SCH (21:41)
[2021-12-20] MEDS: ZOLPIDEM TARTRATE 10 MG TABLET PO PRN (21:41)
--- NOTE | 2021-12-20 21:41 | NUR ---
GPS RN NOTE PT REQUESTING FOR SLEEPING MED, AMBIEN 10 MG PO GIVEN. CONTINUE TO MONITOR .
--- NOTE | 2021-12-21 | NUR ---
GPS RN NOTE PT REFUSED SKIN PICTURES TAKEN.
[2021-12-21 08:00] VITALS: BP 98/58
[2021-12-21] MEDS: LITHIUM CARBONATE (300 MG CAP) 300 MG CAPSULE PO SCH ×3 (08:25→17:07)
[2021-12-21] MEDS: HALOPERIDOL 5 MG TABLET PO SCH ×3 (08:25→17:07)
[2021-12-21] MEDS: BENZTROPINE MESYLATE (1 MG) 1 MG TABLET PO SCH ×3 (08:25→17:07)
[2021-12-21] MEDS: METOPROLOL TARTRATE 25 MG TABLET PO SCH ×2 (08:26→17:00)
[2021-12-21] MEDS: LORAZEPAM 0.5 MG TABLET PO PRN ×2 (14:46→14:56)
--- NOTE | 2021-12-21 14:46 | NUR ---
PATIENT REQUESTING ATIVAN. STATED" CAN I HAVE MY ATIVAN FOR MY ANXIETY". ATIVAN 1MG P.O GIVEN PRN ORDER. WILL CONT. MONITORING FOR SAFETY AND BEHAVIOR.
[2021-12-21 15:30] LABS: ALBUMIN 3.4 g/dL (3.4-5.0); BILIRUBIN,TOTAL 0.4 mg/dL (0.2-1.0); CALCIUM, SERUM 8.7 mg/dL (8.5-10.1); POTASSIUM 4.3 mmol/L (3.5-5.1); TOTAL PROTEIN, SERUM 7.2 g/dL (6.4-8.2)
[2021-12-21 17:20] VITALS: BP 128/97
[2021-12-21 19:43] VITALS: BP 111/53
[2021-12-21] MEDS: TRAZODONE 50 MG TABLET PO SCH (21:18)
[2021-12-21] MEDS: ZOLPIDEM TARTRATE 10 MG TABLET PO PRN (21:18)
[2021-12-22 08:00] VITALS: BP 101/63
[2021-12-22] MEDS: LITHIUM CARBONATE (300 MG CAP) 300 MG CAPSULE PO SCH ×3 (09:09→16:40)
[2021-12-22] MEDS: HALOPERIDOL 5 MG TABLET PO SCH ×3 (09:09→16:40)
[2021-12-22] MEDS: METOPROLOL TARTRATE 25 MG TABLET PO SCH ×2 (09:09→16:39)
[2021-12-22] MEDS: BENZTROPINE MESYLATE (1 MG) 1 MG TABLET PO SCH ×3 (09:09→16:39)
--- NOTE | 2021-12-22 10:01 | NUR ---
Court Hearing: Patient's court hearing for 5250 was today and it was upheld for GD and danger to self.
[2021-12-22 16:00] VITALS: BP 144/73
[2021-12-22] MEDS: LORAZEPAM 0.5 MG TABLET PO PRN (16:40)
[2021-12-22 20:00] VITALS: BP 121/66
[2021-12-22] MEDS: TRAZODONE 50 MG TABLET PO SCH (21:02)
[2021-12-22] MEDS: ZOLPIDEM TARTRATE 10 MG TABLET PO PRN (21:41)
--- NOTE | 2021-12-22 21:42 | NUR ---
GPS RN NOTES: PATIENT REQUESTED FOR SLEEP MEDICATION. AMBIEN 10MG GIVEN PO AT 2141. WILL CONTINUE TO MONITOR.
--- NOTE | 2021-12-23 05:54 | NUR ---
GPS RN NOTES: PATIENT REFUSED AM LABS. LABS WILL BE BACK AFTER BREAKFAST FOR ANOTHER ATTEMPT.
--- NOTE | 2021-12-23 06:47 | NUR ---
GPS RN CLOSING NOTES: PATIENT IS CURRENTLY SLEEPING. PATIENT SLEPT 8HR THIS SHIFT. NO BEHAVIORAL ISSUES THIS SHIFT. NO S/S OF DISTRESS. RESPIRATION EVEN AND UNLABORED WITH EQUAL RISE AND FALL OF THE CHEST, ON ROOM AIR. NO C/O PAIN THIS SHIFT. ALL PATIENT CARE NEEDS HAVE BEEN MET ANTICIPATED. WILL ENDORSE TO AM SHIFT.
[2021-12-23 08:00] VITALS: BP 116/61
[2021-12-23] MEDS: BENZTROPINE MESYLATE (1 MG) 1 MG TABLET PO SCH ×3 (08:30→16:02)
[2021-12-23] MEDS: LITHIUM CARBONATE (300 MG CAP) 300 MG CAPSULE PO SCH ×3 (08:30→16:02)
[2021-12-23] MEDS: HALOPERIDOL 5 MG TABLET PO SCH ×3 (08:31→16:03)
[2021-12-23] MEDS: METOPROLOL TARTRATE 25 MG TABLET PO SCH ×2 (08:31→16:03)
--- NOTE | 2021-12-23 09:26 | NUR ---
Discharge Plan: Alea martínez ([phone]) stated pt is accepted at [facility], [address] [address]; ([phone]).
--- NOTE | 2021-12-23 10:29 | NUR ---
RANDELL Coordination of Care: RANDELL sent clinicals to [facility] ([phone]) for home health services and stated they will accept pt and will need to be notified upon dc to send a nurse.
[2021-12-23 15:56] LABS: ALBUMIN 3.3 g/dL (3.4-5.0); BILIRUBIN,TOTAL 0.2 mg/dL (0.2-1.0); CALCIUM, SERUM 8.7 mg/dL (8.5-10.1); CREATININE 0.8 mg/dL (0.6-1.3)
[2021-12-23 16:00] VITALS: BP 134/90
[2021-12-23] MEDS: LORAZEPAM 0.5 MG TABLET PO PRN (19:35)
--- NOTE | 2021-12-23 19:49 | NUR ---
GPS RN NOTES: PATIENT C/O ANXIETY.ATIVAN 1MG/1TAB GIVEN PO AT 1935. WILL CONTINUE TO MONITOR.
[2021-12-23 20:40] VITALS: BP 113/57
[2021-12-23] MEDS: TRAZODONE 50 MG TABLET PO SCH (21:04)
[2021-12-23] MEDS: ZOLPIDEM TARTRATE 10 MG TABLET PO PRN (21:15)
--- NOTE | 2021-12-23 21:19 | NUR ---
GPS RN NOTES: PATIENT REQUESTED FOR SLEEP MEDICATION. AMBIEN 10MG GIVEN PO AT 2114. WILL CONTINUE TO MONITOR.
--- NOTE | 2021-12-24 06:56 | NUR ---
GPS RN CLOSING NOTES: PATIENT IS LAYING IN BED, AWAKE, A/O X3. PATIENT SLEPT 8HR THIS SHIFT. NO S/S OF DISTRESS. RESPIRATION EVEN AND UNLABORED WITH EQUAL RISE AND FALL OF THE CHEST, ON ROOM AIR. NO C/O PAIN THIS SHIFT. ALL PATIENT CARE NEEDS HAVE BEEN MET ANTICIPATED. WILL CONTINUE TO MONITOR AND ENDORSE TO AM SHIFT.
[2021-12-24 08:00] VITALS: BP 114/67
[2021-12-24] MEDS: METOPROLOL TARTRATE 25 MG TABLET PO SCH ×2 (08:15→17:03)
[2021-12-24] MEDS: LITHIUM CARBONATE (300 MG CAP) 300 MG CAPSULE PO SCH ×3 (08:15→17:02)
[2021-12-24] MEDS: BENZTROPINE MESYLATE (1 MG) 1 MG TABLET PO SCH ×3 (08:15→17:02)
[2021-12-24] MEDS: HALOPERIDOL 5 MG TABLET PO SCH ×3 (08:15→17:02)
[2021-12-24 16:12] VITALS: BP 115/68
--- NOTE | 2021-12-24 19:30 | NUR ---
GPS RN NOTE, RECEIVED PATIENT AWAKE AND IN BED, NO S/S OR COMPLAINTS OF PAIN AT THIS TIME. PATIENT IS DISPLAYING NO S/S OF APPARENT DISTRESS AT THIS TIME. PATIENT BREATHING IS UNLABORED WITH EQUAL RISE AND FALL OF THE CHEST. PATIENT IS ALERT AND ORIENTED X 3 ON ROOM AIR WITH A SPO2 97%. PATIENT IS COMPLIANT WITH MEDICATIONS, CALM, POLITE, MAKES NEEDS KNOWN, AND COOPERATIVE. PATIENT DENIES SUICIDAL AND HOMICIDAL IDEATIONS AT THIS TIME. PATIENT ASSISTED WITH TURNING AND REPOSITIONING Q2HR AND PRN FOR COMFORT AND CIRCULATION. PATIENT HAS NO NEEDS AT THIS TIME. PATIENT EDUCATED ON THE USE OF THE CALL WHITE. PATIENT BED SIDE RAILS UP X 2 FOR SAFETY. PATIENT BED IS LOCKED, LOW, WITH BED ALARM ON. WILL CONTINUE TO MONITOR THIS PATIENT Q15 MINUTES WITH THE HELP OF STAFF TO MAINTAIN SAFETY.
[2021-12-24 20:00] VITALS: BP 105/45
[2021-12-24] MEDS ORDERED: LITHIUM CARBONATE (300 MG CAP) 300 MG CAPSULE PO SCH ×2 (21:00)
[2021-12-24] MEDS: LITHIUM CARBONATE 150 MG CAPSULE PO SCH (21:16)
[2021-12-24] MEDS: ZOLPIDEM TARTRATE 10 MG TABLET PO PRN (21:16)
[2021-12-24] MEDS: TRAZODONE 50 MG TABLET PO SCH (21:16)
--- NOTE | 2021-12-24 21:16 | NUR ---
GPS RN NOTE, PATIENT HAS A COMPLAINT OF NOT BEING ABLE TO SLEEP AND IS REQUESTING AMBIEN AT THIS TIME. PATIENT VITAL SIGNS ARE STABLE. GAVE AMBIEN 10MG PO PRN HS ORDERED. WILL REASSESS FOR INSOMNIA AND I WILL CONTINUE TO MONITOR THIS PATIENT WITH THE HELP OF STAFF.
[2021-12-25 08:00] VITALS: BP 141/99
[2021-12-25] MEDS: LITHIUM CARBONATE (300 MG CAP) 300 MG CAPSULE PO SCH ×2 (08:16→16:24)
[2021-12-25] MEDS: BENZTROPINE MESYLATE (1 MG) 1 MG TABLET PO SCH ×3 (08:16→16:24)
[2021-12-25] MEDS: HALOPERIDOL 5 MG TABLET PO SCH ×3 (08:16→16:24)
[2021-12-25] MEDS: METOPROLOL TARTRATE 25 MG TABLET PO SCH ×2 (08:17→16:24)
[2021-12-25 13:50] LABS: ALBUMIN 3.3 g/dL (3.4-5.0); BILIRUBIN,TOTAL 0.3 mg/dL (0.2-1.0); CALCIUM, SERUM 8.8 mg/dL (8.5-10.1); CREATININE 0.9 mg/dL (0.6-1.3); POTASSIUM 3.9 mmol/L (3.5-5.1); TOTAL PROTEIN, SERUM 7.1 g/dL (6.4-8.2)
[2021-12-25] MEDS: LORAZEPAM 0.5 MG TABLET PO PRN (14:18)
--- NOTE | 2021-12-25 14:18 | NUR ---
RN-NOTES PATIENT REQUESTING ATIVAN. STATED" CAN I HAVE MY ATIVAN FOR MY ANXIETY". ATIVAN 1MG P.O GIVEN PRN ORDER. WILL CONT. MONITORING FOR SAFETY AND BEHAVIOR.
--- NOTE | 2021-12-25 15:20 | NUR ---
RN-NOTES PATIENT LYING IN BED INTERMITTENTLY SLEEPING, NO ACUTE DISTRESS NOTED.
[2021-12-25 16:00] VITALS: BP 139/68
[2021-12-25 20:00] VITALS: BP 107/64
[2021-12-25] MEDS: LITHIUM CARBONATE 150 MG CAPSULE PO SCH (21:11)
[2021-12-25] MEDS: TRAZODONE 50 MG TABLET PO SCH (21:11)
[2021-12-25] MEDS: ZOLPIDEM TARTRATE 10 MG TABLET PO PRN (21:15)
--- NOTE | 2021-12-25 21:15 | NUR ---
GPS RN NOTES: INSOMNIA PATIENT C/O INABILITY TO SLEEP. AMBIEN 10MG PO GIVEN PRN ORDER. WILL CONTINUE TO MONITOR.
[2021-12-26 08:00] VITALS: BP 112/76
[2021-12-26] MEDS: BENZTROPINE MESYLATE (1 MG) 1 MG TABLET PO SCH ×3 (08:01→17:44)
[2021-12-26] MEDS: LITHIUM CARBONATE (300 MG CAP) 300 MG CAPSULE PO SCH ×2 (08:01→17:44)
[2021-12-26] MEDS: HALOPERIDOL 5 MG TABLET PO SCH ×3 (08:01→17:44)
[2021-12-26] MEDS: METOPROLOL TARTRATE 25 MG TABLET PO SCH ×2 (08:02→17:45)
[2021-12-26] MEDS: LORAZEPAM 0.5 MG TABLET PO PRN (15:25)
[2021-12-26 16:00] VITALS: BP 123/68
[2021-12-26 19:53] VITALS: BP 115/64
[2021-12-26 20:00] VITALS: BP 115/64
[2021-12-26] MEDS: TRAZODONE 50 MG TABLET PO SCH (21:13)
[2021-12-26] MEDS: LITHIUM CARBONATE 150 MG CAPSULE PO SCH (21:19)
[2021-12-26] MEDS: ZOLPIDEM TARTRATE 10 MG TABLET PO PRN (21:35)
--- NOTE | 2021-12-26 21:36 | NUR ---
GPS RN NOTE: INSOMNIA PATIENT C/O INABILITY TO SLEEP AND INSISTED TO TAKE AMBIEN AT THIS TIME. PER PATIENT REQUEST AMBIEN 10 MG PO ADMINISTERED. WILL CONTINUE TO MONITOR FOR ANY CHANGE OF CONDITION.
[2021-12-27] MEDS: METOPROLOL TARTRATE 25 MG TABLET PO SCH ×2 (07:48→17:43)
[2021-12-27 08:00] VITALS: BP 98/63
[2021-12-27] MEDS: BENZTROPINE MESYLATE (1 MG) 1 MG TABLET PO SCH ×3 (08:00→17:41)
[2021-12-27] MEDS: HALOPERIDOL 5 MG TABLET PO SCH ×3 (08:00→17:41)
[2021-12-27] MEDS: LITHIUM CARBONATE (300 MG CAP) 300 MG CAPSULE PO SCH ×2 (08:00→17:41)
[2021-12-27 16:00] VITALS: BP 116/76
[2021-12-27] MEDS: LORAZEPAM 0.5 MG TABLET PO PRN (18:37)
[2021-12-27 19:52] VITALS: BP 100/47
[2021-12-27] MEDS: TRAZODONE 50 MG TABLET PO SCH (21:08)
[2021-12-27] MEDS: LITHIUM CARBONATE 150 MG CAPSULE PO SCH (21:08)
[2021-12-27] MEDS: ZOLPIDEM TARTRATE 10 MG TABLET PO PRN (21:09)
--- NOTE | 2021-12-28 07:57 | NUR ---
SW Discharge Note: Patient will discharge to [facility], [address] [address]; ([phone]). 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 Alea coordinator ([phone]) stated pt is accepted today. Patient denies visual/auditory hallucinations. Patient is alert and oriented x3. Patient will follow up with (Psychiatrist) Dr. Chrystal Del Angel at the facility who will monitor and provide psychotropic medications. [facility] was arranged (P:[phone], F: [phone]) for medication management, physical therapy, and nursing follow ups they will follow up with pt. for intake evaluation. Patient presents with euthymic mood and congruent affect.
[2021-12-28 08:00] VITALS: BP 123/68
[2021-12-28] MEDS: BENZTROPINE MESYLATE (1 MG) 1 MG TABLET PO SCH ×2 (09:48→12:36)
[2021-12-28 09:49] VITALS: BP 123/68
[2021-12-28] MEDS: METOPROLOL TARTRATE 25 MG TABLET PO SCH (09:49)
[2021-12-28] MEDS: HALOPERIDOL 5 MG TABLET PO SCH ×2 (09:49→12:36)
[2021-12-28] MEDS: LITHIUM CARBONATE (300 MG CAP) 300 MG CAPSULE PO SCH (09:49)
--- NOTE | 2021-12-28 13:19 | NUR ---
GPS DRY TRANSFER WORKER NOTE: [facility] .PATIENT IN STABLE CONDITION , A/O X3, COOPERATIVE AMBULATORY WITH CANE , DENIES SI/HI AVH. PATIENT DENIES FEELING DEPRESSED OR SAD, DENIES SUICIDAL IDEATION, COOPERATIVE WITH MEDICATIONS AND TX . DENIES PAIN OR ANY DISCOMFORT. HOME HEALTH WITH SEE PT TODAY . EXIT CARE DONE PRINTED, SIGN AND GIVEN TO PT. ALL BELONGINGS AND VALUABLES RETURNED TO PT. PT COVID NEGATIVE , REFUSED SKIN ASSESSMENT.PATIENT VSS , NO S/S DISTRESS NOTED.
--- NOTE | 2022-01-15 10:46 | NUR ---
RANDELL Substance Abuse Follow-up: Substance abuse follow up intervention was conducted. RANDELL attempted to contact pt at ([phone]) at his [employer], pt, stated that she does not want to talk about this topic and that she does not use drugs or smoke.
== END 2021-12-28 13:05 | DRG 885 ==
LOC: UNDODISIN 14:20 → GPS 14:20
PROVIDERS: ADMIT Psychiatry & Neurology Psychiatry; ATTEND Nurse Practitioner Acute Care
DX: F31.5 Bipolar disorder, current episode depressed, severe, with psychotic features (principal); U07.1 COVID-19; E87.1 Hypo-osmolality and hyponatremia; Z68.41 Body mass index [BMI] 40.0-44.9, adult; E44.1 Mild protein-calorie malnutrition; E11.9 Type 2 diabetes mellitus without complications; E78.5 Hyperlipidemia, unspecified; T14.91XD Suicide attempt, subsequent encounter; X78.9XXD Intentional self-harm by unspecified sharp object, subsequent encounter; F29 Unspecified psychosis not due to a substance or known physiological condition; E66.01 Morbid (severe) obesity due to excess calories; I10 Essential (primary) hypertension; I51.7 Cardiomegaly; R74.01 Elevation of levels of liver transaminase levels; S61.519D Laceration without foreign body of unspecified wrist, subsequent encounter
CPT/HCPCS: 36415; 71045-TC; 80053-TC; 80061-TC; 85025-TC